=== PATIENT | male | born 1985 | race Caucasian/White ===

== ENCOUNTER 2024-11-09 12:22 | Emergency (ER) | payer MEDICARE ==
[~2024-11-09] VITALS: Ht 177.8 cm; Wt 106.1 kg
[2024-11-09] MEDS ORDERED: NAPROSYN500 MG PO (13:47)
== END 2024-11-09 14:04 | disposition home or self-care (01) ==
LOC: ED 12:22
DX: S60.221A Contusion of right hand, initial encounter (principal); X58.XXXA Exposure to other specified factors, initial encounter; Y93.89 Activity, other specified; Y92.89 Other specified places as the place of occurrence of the external cause; Y99.8 Other external cause status

== ENCOUNTER 2024-12-28 12:08 | Emergency (ER) | payer MEDICARE ==
[~2024-12-28] VITALS: Ht 177.8 cm; Wt 108.9 kg
[~2024-12-28 12:08] MED LIST: NAPROSYN500 MG PO
[2024-12-28] MEDS ORDERED: Dexamethasone Sodium Phospha 20 MG/5 ML VIAL IM ONE (12:35)
[2024-12-28] MEDS ORDERED: ALBUTEROL 8 GM INHALER INH ONE (12:35)
[2024-12-28] MEDS ORDERED: Codeine Phosphate/Guaifenesi 10 ML UDC PO ONE (12:35)
[2024-12-28] MEDS ORDERED: PREDNISONE20 M1 PO (14:08)
[2024-12-28] MEDS ORDERED: AMOXICILLIN500 M2 PO (14:08)
[2024-12-28] MEDS ORDERED: GUAIFENESIN AC473 M1 PO (14:08)
== END 2024-12-28 14:20 | disposition home or self-care (01) ==
LOC: ED 12:08
DX: J06.9 Acute upper respiratory infection, unspecified (principal); B97.89 Other viral agents as the cause of diseases classified elsewhere; H66.91 Otitis media, unspecified, right ear; Z20.822 Contact with and (suspected) exposure to COVID-19; Z79.899 Other long term (current) drug therapy; Z91.011 Allergy to milk products